=== PATIENT | male | born 1970 | race Caucasian/White ===

== ENCOUNTER 2018-02-08 11:50 | Emergency (ER) | payer BC, OTHER ==
--- NOTE | 2018-02-08 12:16 | ER ---
Nurse's Notes [facility] Name: Eugene Joya Age: 47 yrs Sex: Male : 1970 Arrival Date: 02/08/2018 Time: 11:53 Bed Waiting Private MD: Rose Reinoso H Diagnosis: Presentation: 02/08 11:54 Presenting complaint: Patient states: i was going to give blood and they told me my tw2 blood pressure was 150/100 something, and i feel a little tightness in my chest. Transition of care: patient was not received from another setting of care. Onset of symptoms was February 08, 2018. Risk Assessment: Do you want to hurt yourself or someone else? Patient reports no desire to harm self or others. Initial Sepsis Screen: Does the patient meet any 2 criteria? No. Patient's initial sepsis screen is negative. Does the patient have a suspected source of infection? No. Patient's initial sepsis screen is negative. Care prior to arrival: None. 11:54 Method Of Arrival: Ambulatory tw2 11:54 Acuity: RICCO 3 tw2 Historical: - Allergies: 11:57 No Known Allergies; tw2 - Home Meds: 11:57 Protonix 40 mg Oral grps 1 packet once daily [Active]; gabapentin 300 mg oral cap 1 cap tw2 3 times per day [Active]; meloxicam 15 mg oral tab 1 tab once daily [Active]; fenofibrate 120 mg oral tab 1 tab once daily [Active]; tramadol 50 mg Oral tab 1 tab every 4-6 hours [Active]; - PMHx: 11:57 GERD; tw2 - PSHx: 11:57 None; tw2 - Immunization history:: Adult Immunizations up to date. - Social history:: Smoking status: Patient/guardian denies using tobacco. Vital Signs: 11:55 BP 139 / 98; Pulse 84; Resp 17; Temp 98.1(O); Pulse Ox 98% on R/A; Weight 108.86 kg tw2 (R); Height 6 ft. (182.88 cm); Pain 1/10; 11:55 Body Mass Index 32.55 (108.86 kg, 182.88 cm) tw2 ED Course: 11:53 Patient arrived in ED. mr 11:53 Rose Reinoso DO is Private Physician. mr 11:54 Arm band placed on. tw2 11:55 Triage completed. tw2 Administered Medications: No medications were administered Outcome: 12:14 AMA Other pt triaged, ekg performed, pt informed of wait, pt states "i will just tw2 schedule something with my primary doctor i feel fine", ama form signed. 12:15 Patient left the ED. tw2 Signatures: Rosa Call mr Chaya Keene, RN RN tw2 Corrections: (The following items were deleted from the chart) 12:01 11:55 BP 139 / 98; Pulse 84bpm; Resp 17bpm; Pulse Ox 98% RA; Temp 98.1F Oral; 108.86 kg tw2 Reported; Height 6 ft.; BMI: 32.5; Pain 0/10; tw2
--- NOTE | 2018-02-08 18:35 | EKG ---
Test Date: 2018-02-08 Test Time: 12:03:29 Recruiting Team Lead: CARMEN MEASUREMENT RESULTS: Intervals: Rate: 81 IA: 136 QRSD: 90 QT: 358 QTc: 415 Ramer: P: 66 IA: 136 QRS: 76 T: 54 INTERPRETIVE STATEMENTS: Normal sinus rhythm Normal ECG No previous ECG available for comparison Electronically Signed On 02-08-18 18:33:34 CDT by Mango Taylor
== END 2018-02-08 12:15 | disposition left against medical advice (07) ==
LOC: ER 11:50
DX: Z53.21 Procedure and treatment not carried out due to patient leaving prior to being seen by health care provider (principal)
CPT/HCPCS: 93005; 99281

== ENCOUNTER 2018-07-22 20:18 | Emergency (ER) | payer OTHER ==
[2018-07-22] MEDS ORDERED: HYDROCODONE/APAP 10/325 TAB ONE (21:52)
--- NOTE | 2018-07-22 21:55 | RAD REPORT ---
EXAM DESCRIPTION: CT - Abdomen Pelvis Wo Contrast - 07/22/2018 9:40 pm CLINICAL HISTORY: Abdominal pain status post fall COMPARISON: None TECHNIQUE: Computed axial tomography of the abdomen and pelvis was obtained. IV and oral contrast we re not requested. All CT scans are performed using dose optimization technique as appropriate and may include automated exposure control or mA/KV adjustment according to patient size. FINDINGS: The evaluation of solid organs, vessels and bowel is limited secondary to the lack of con trast administration. The liver, spleen, pancreas, adrenals and kidneys appear grossly normal. The appendix is normal. There is no evidence of diverticulitis. IMPRESSION: No acute abnormality is displayed.
--- NOTE | 2018-07-22 22:15 | ER ---
Nurse's Notes [facility] Name: Eugene Joya Age: 47 yrs Sex: Male : 1970 Arrival Date: 07/22/2018 Time: 20:21 Bed 27 Private MD: Rose Reinoso H Diagnosis: Contusion Mid Back Presentation: 07/22 20:39 Presenting complaint: Patient states: he was working on his truck had one foot on the bb bumper and fell backwards landing on his back on a gas meter pt denies LOC and did not hit his head he is c/o right mid-back pain 04/29. Transition of care: patient was not received from another setting of care. Onset of symptoms was July 22, 2018. Risk Assessment: Do you want to hurt yourself or someone else? Patient reports no desire to harm self or others. Initial Sepsis Screen: Does the patient meet any 2 criteria? No. Patient's initial sepsis screen is negative. Does the patient have a suspected source of infection? No. Patient's initial sepsis screen is negative. Care prior to arrival: None. 20:39 Method Of Arrival: Ambulatory bb 20:39 Acuity: RICCO 4 bb Historical: - Allergies: 20:42 No Known Allergies; bb - Home Meds: 20:42 fenofibrate 120 mg Oral tab 1 tab once daily [Active]; gabapentin 300 mg Oral cap 1 cap bb 3 times per day [Active]; meloxicam 15 mg Oral tab 1 tab once daily [Active]; Protonix 40 mg Oral grps 1 packet once daily [Active]; tramadol 50 mg Oral tab 1 tab every 4-6 hours [Active]; - PMHx: 20:42 GERD; herniated disc in neck; bb - PSHx: 20:42 None; bb - Immunization history:: Adult Immunizations up to date, Last tetanus immunization: up to date. - Social history:: Smoking status: Patient/guardian denies using tobacco, Patient uses alcohol, occasionally. Patient/guardian denies using street drugs. - Ebola Screening: : No symptoms or risks identified at this time. Screenin:43 Abuse screen: Denies threats or abuse. Denies injuries from another. Nutritional mg2 screening: No deficits noted. Tuberculosis screening: No symptoms or risk factors identified. Fall Risk Fall in past 12 months (25 points). Gait- Weak (10 pts.). Assessment: 21:12 General: Appears in no apparent distress. uncomfortable, Behavior is calm, cooperative. mg2 Pain: Complains of pain in lower back Pain does not radiate. Pain currently is 8 out of 10 on a pain scale. Quality of pain is described as aching. Neuro: Level of Consciousness is awake, alert, obeys commands, Oriented to person, place, time, situation. Cardiovascular: Capillary refill < 3 seconds Patient's skin is warm and dry. Respiratory: Airway is patent Respiratory effort is even, unlabored, Respiratory pattern is regular, symmetrical. GI: No signs and/or symptoms were reported involving the gastrointestinal system. : No signs and/or symptoms were reported regarding the genitourinary system. EENT: No signs and/or symptoms were reported regarding the EENT system. Derm: Skin is intact, is healthy with good turgor, Skin is pink, warm \T\ dry. normal. Musculoskeletal: Circulation, motion, and sensation intact. Capillary refill < 3 seconds. Injury Description: pain. Vital Signs: 20:42 BP 136 / 100; Pulse 93; Resp 16 S; Temp 98.5(O); Pulse Ox 94% on R/A; Weight 113.4 kg bb (R); Height 6 ft. 1 in. (185.42 cm) (R); Pain 8/10; 21:58 BP 131 / 67; Pulse 86; Resp 16; Pulse Ox 96% on R/A; mt 22:29 BP 128 / 78; Pulse 80; Resp 18; Pulse Ox 100% on R/A; Pain 0/10; mg2 20:42 Body Mass Index 32.98 (113.40 kg, 185.42 cm) ED Course: 20:21 Patient arrived in ED. es 20:21 Rose Reinoso DO is Private Physician. es 20:38 Mayur Nova, KARLA is Primary Nurse. mg2 20:41 Triage completed. bb 20:42 Patient placed in an exam room, on a stretcher, on pulse oximetry. Family accompanied bb patient. 20:43 Sy Segura PA is PHCP. jr8 20:43 Arnaldo Tomas MD is Attending Physician. jr8 20:43 Patient has correct armband on for positive identification. Bed in low position. Call mg2 light in reach. Side rails up X 1. Pulse ox on. NIBP on. Door closed. Warm blanket given. 20:43 No provider procedures requiring assistance completed. mg2 21:[address] mw3 22:13 Rose eRinoso DO is Referral Physician. jr8 22:29 Patient did not have IV access during this emergency room visit. mg2 22:43 CT Abd/Pelvis - Without Cont In Process Unspecified. EDMS Administered Medications: 21:46 Drug: [place] 10 mg-325 mg 1 tabs Route: PO; mg2 22:25 Follow up: Response: No adverse reaction; Marked relief of symptoms mg2 Outcome: 22:14 Discharge ordered by MD. jr8 22:29 Discharged to home ambulatory, with family. mg2 22:29 Condition: stable 22:29 Discharge instructions given to patient, family, Instructed on discharge instructions, follow up and referral plans. medication usage, Demonstrated understanding of instructions, follow-up care, medications, Prescriptions given X 1. 22:30 Patient left the ED. mg2 Signatures: Dispatcher [employer] EDMS Katie Florian Brenda, RN RN bb Sy Segura PA PA jr8 Ashley Serrano mt, Michele, RN RN [facility] Cherie Anderson mw3
--- NOTE | 2018-07-22 22:15 | EDPHYS ---
Physician Documentation [facility] Name: Eugene Joya Age: 47 yrs Sex: Male : 1970 Arrival Date: 07/22/2018 Time: 20:21 Bed 27 Private MD: Rose Reinoso H ED Physician Arnaldo Tomas HPI: 07/22 21:20 This 47 yrs old Male presents to ER via Ambulatory with complaints of Back jr8 Injury. 21:20 The patient presents with pain that is acute. The symptoms are located in the right mid jr8 back. Onset: The symptoms/episode began/occurred acutely, today. The pain does not radiate. Associated signs and symptoms: The patient has no apparent associated signs or symptoms. The problem was sustained during a fall. Severity of symptoms: At their worst the symptoms were moderate, in the emergency department the symptoms are unchanged. The patient has not experienced similar symptoms in the past. The patient has not recently seen a physician. Fell while working on truck. Fall was about 4 feet. Landed on Gas meter. Pain to mid right back since incident. Denies hitting head or neck. Denies LOC . Historical: - Allergies: 20:42 No Known Allergies; bb - Home Meds: 20:42 fenofibrate 120 mg Oral tab 1 tab once daily [Active]; gabapentin 300 mg Oral cap 1 cap bb 3 times per day [Active]; meloxicam 15 mg Oral tab 1 tab once daily [Active]; Protonix 40 mg Oral grps 1 packet once daily [Active]; tramadol 50 mg Oral tab 1 tab every 4-6 hours [Active]; - PMHx: 20:42 GERD; herniated disc in neck; bb - PSHx: 20:42 None; bb - Immunization history:: Adult Immunizations up to date, Last tetanus immunization: up to date. - Social history:: Smoking status: Patient/guardian denies using tobacco, Patient uses alcohol, occasionally. Patient/guardian denies using street drugs. - Ebola Screening: : No symptoms or risks identified at this time. ROS: 21:20 Eyes: Negative for injury, pain, redness, and discharge, ENT: Negative for injury, jr8 pain, and discharge, Neck: Negative for injury, pain, and swelling, Cardiovascular: Negative for chest pain, palpitations, and edema, Respiratory: Negative for shortness of breath, cough, wheezing, and pleuritic chest pain, Abdomen/GI: Negative for abdominal pain, nausea, vomiting, diarrhea, and constipation, MS/Extremity: Negative for injury and deformity, Skin: Negative for injury, rash, and discoloration, Neuro: Negative for headache, weakness, numbness, tingling, and seizure. 21:20 Back: Positive for pain at rest, pain with movement, Negative for radiated pain. Exam: 21:20 Head/Face: Normocephalic, atraumatic. Eyes: Pupils equal round and reactive to light, jr8 extra-ocular motions intact. Lids and lashes normal. Conjunctiva and sclera are non-icteric and not injected. Cornea within normal limits. Periorbital areas with no swelling, redness, or edema. ENT: Nares patent. No nasal discharge, no septal abnormalities noted. Tympanic membranes are normal and external auditory canals are clear. Oropharynx with no redness, swelling, or masses, exudates, or evidence of obstruction, uvula midline. Mucous membranes moist. Neck: Trachea midline, no thyromegaly or masses palpated, and no cervical lymphadenopathy. Supple, full range of motion without nuchal rigidity, or vertebral point tenderness. No Meningismus. Chest/axilla: Normal chest wall appearance and motion. Nontender with no deformity. No lesions are appreciated. Cardiovascular: Regular rate and rhythm with a normal S1 and S2. No gallops, murmurs, or rubs. Normal PMI, no JVD. No pulse deficits. Respiratory: Lungs have equal breath sounds bilaterally, clear to auscultation and percussion. No rales, rhonchi or wheezes noted. No increased work of breathing, no retractions or nasal flaring. Abdomen/GI: Soft, non-tender, with normal bowel sounds. No distension or tympany. No guarding or rebound. No evidence of tenderness throughout. Skin: Warm, dry with normal turgor. Normal color with no rashes, no lesions, and no evidence of cellulitis. MS/ Extremity: Pulses equal, no cyanosis. Neurovascular intact. Full, normal range of motion. Neuro: Awake and alert, GCS 15, oriented to person, place, time, and situation. Cranial nerves II-XII grossly intact. Motor strength 5/5 in all extremities. Sensory grossly intact. Cerebellar exam normal. Normal gait. 21:20 Back: pain, that is moderate, of the right mid back, ROM is painful, normal spinal alignment noted, CVA tenderness, is absent, vertebral tenderness, is not appreciated. Vital Signs: 20:42 BP 136 / 100; Pulse 93; Resp 16 S; Temp 98.5(O); Pulse Ox 94% on R/A; Weight 113.4 kg bb (R); Height 6 ft. 1 in. (185.42 cm) (R); Pain 8/10; 21:58 BP 131 / 67; Pulse 86; Resp 16; Pulse Ox 96% on R/A; mt 22:29 BP 128 / 78; Pulse 80; Resp 18; Pulse Ox 100% on R/A; Pain 0/10; mg2 20:42 Body Mass Index 32.98 (113.40 kg, 185.42 cm) bb MDM: 20:57 Patient medically screened. jr8 22:12 Differential diagnosis: ruptured disc, spinal injury, sprain, vertebral fracture, jr8 Hematoma, Kidney injury. Data reviewed: vital signs, nurses notes, radiologic studies, CT scan, and as a result, I will discharge patient. Data interpreted: Pulse oximetry: on room air is 96 %. Interpretation: normal. Counseling: I had a detailed discussion with the patient and/or guardian regarding: the historical points, exam findings, and any diagnostic results supporting the discharge/admit diagnosis, radiology results, the need for outpatient follow up, a family practitioner, to return to the emergency department if symptoms worsen or persist or if there are any questions or concerns that arise at home. 07/22 21:11 Order name: CT Abd/Pelvis - Without Cont jr8 Administered Medications: 21:46 Drug: [place] 10 mg-325 mg 1 tabs Route: PO; mg2 22:25 Follow up: Response: No adverse reaction; Marked relief of symptoms mg2 Disposition: 23:09 Co-signature as Attending Physician, Arnaldo Tomas MD. pkl Disposition: 07/22/18 22:14 Discharged to Home. Impression: Contusion Mid Back. - Condition is Stable. - Discharge Instructions: Contusion. - Prescriptions for Robaxin 500 mg Oral Tablet - take 2 tablet by ORAL route every 6 hours As needed; 40 tablet. - Medication Reconciliation Form, Thank You Letter, Antibiotic Education, Prescription Opioid Use form. - Follow up: Rose Reinoso DO; When: 2 - 3 days; Reason: Recheck today's complaints, Continuance of care, Re-evaluation by your physician. - Problem is new. - Symptoms have improved. Signatures: Dispatcher [employer] EDArnaldo Goodrich MD MD pkl Ballard, Brenda, RN RN Sy Freeman PA PA jr8 Mayur Nova RN RN mg2 Corrections: (The following items were deleted from the chart) 22:30 22:14 07/22/2018 22:14 Discharged to Home. Impression: Contusion Mid Back. Condition is mg2 Stable. Forms are Medication Reconciliation Form, Thank You Letter, Antibiotic Education, Prescription Opioid Use. Follow up: EstrellitaAriella Reinoso; When: 2 - 3 days; Reason: Recheck today's complaints, Continuance of care, Re-evaluation by your physician. Problem is new. Symptoms have improved. jr8
== END 2018-07-22 22:30 | disposition home or self-care (01) ==
LOC: ER 20:18
DX: S30.0XXA Contusion of lower back and pelvis, initial encounter (principal); W19.XXXA Unspecified fall, initial encounter; Y93.89 Activity, other specified; Y92.9 Unspecified place or not applicable
CPT/HCPCS: 74176; 99284

== ENCOUNTER 2024-10-31 07:59 | Inpatient (IN) | payer OTHER ==
[2024-10-31] MEDS ORDERED: METOPROLOL TARTRATE 5 MG/5 ML INJ IV ONE (08:17)
[2024-10-31] MEDS ORDERED: ASPIRIN 81 MG CHEWABLE TABLET ONE (08:17)
[2024-10-31 08:24] LABS: Absolute Basophils 0.1 K/uL (0-0.5); Absolute Eosinophils 0.2 K/uL (0-0.5); Absolute Lymphocytes (CBC) 1.8 K/uL (0.7-4.9); Absolute Monocytes 1.2 K/uL (0.1-1.3); Basophils % 0.8 % (0-1.3); Eosinophils % 2.2 % (0-4.4); Hematocrit 52.3 % (39.6-49.0); Hemoglobin 18.4 g/dL (13.6-17.9); MCH 29.7 pg (27.0-35.0); MCHC 35.2 g/dL (32.0-36.0); MCV 84.4 fL (80-100); MPV 8.4 fL (7.6-11.3); Monocytes % 11.9 % (3.3-12.3); Neutrophils % 68.1 % (41.7-73.7); Nucleated Red Blood Cells % 0.2 % (0-0); Platelets 185 thou/uL (152-406); Red Cell Distribution Width 14.4 % (12.1-15.2)
[2024-10-31 08:32] LABS: PT Prothrombin Time 11.5 SECONDS (9.4-12.5); Protime INR 1.1
[2024-10-31 08:40] LABS: Albumin 3.5 g/dL (3.4-5.0); Albumin/Globulin Ratio 0.9 (1.1-1.8); Anion Gap 9.3 mEq/L (5.0-15.0); Bilirubin Direct 0.2 mg/dL (0-0.2); Bilirubin Indirect, Calculated 0.5 mg/dL (0.2-0.8); Bilirubin Total 0.7 mg/dL (0.2-1.0); Globulin 3.8 g/dL (2.3-3.5); Magnesium 1.8 mg/dL (1.6-2.4); Potassium 4.3 mEq/L (3.5-5.1); Protein, Total 7.3 g/dL (6.4-8.2)
[2024-10-31 08:41] LABS: Troponin High Sensitivity 502.7 pg/mL (<58.9)
[2024-10-31] MEDS ORDERED: AMIODARONE HCL 150 MG/3 ML INJ IV ONE (08:51)
--- NOTE | 2024-10-31 09:09 | ER ---
Nurse's Notes [facility] Name: Eugene Joya Age: 54 yrs Sex: Male : 1970 Arrival Date: 10/31/2024 Time: 07:59 Bed 7 Private MD: Diagnosis: Unspecified atrial fibrillation;Chest pain, unspecified;Elevated Troponin Presentation: 10/31 08:05 Chief complaint: Patient states: Pt c/o CP, tightness, SOB, nausea X 1 week. ld1 Coronavirus screen: At this time, the client does not indicate any symptoms associated with coronavirus-19. Ebola Screen: No symptoms or risks identified at this time. Initial Sepsis Screen: Does the patient meet any 2 criteria? No. Patient's initial sepsis screen is negative. Does the patient have a suspected source of infection? No. Patient's initial sepsis screen is negative. Risk Assessment: Do you want to hurt yourself or someone else? Patient reports no desire to harm self or others. Onset of symptoms was October 31, 2024. 08:05 Method Of Arrival: Ambulatory ld1 08:05 Acuity: RICCO 2 ld1 Triage Assessment: 08:18 General: Appears in no apparent distress. comfortable, Behavior is calm, cooperative, ld1 appropriate for age. Pain: Complains of pain in chest Pain does not radiate. Pain currently is 2 out of 10 on a pain scale. Quality of pain is described as pulsating, Pain began 1 week ago Is intermittent. EENT: No signs and/or symptoms were reported regarding the EENT system. Neuro: Level of Consciousness is awake, alert, obeys commands, Oriented to person, place, time, situation, Appropriate for age. Cardiovascular: Capillary refill < 3 seconds Patient's skin is warm and dry. Rhythm is atrial fibrillation. Respiratory: Airway is patent Respiratory effort is even, unlabored. GI: Abdomen is round non-distended. GI: Reports nausea. : No signs and/or symptoms were reported regarding the genitourinary system. Derm: Skin is diaphoretic. Musculoskeletal: No signs and/or symptoms reported regarding the musculoskeletal system. Historical: - Allergies: 08:04 No Known Allergies; ld1 - PMHx: 08:04 GERD; herniated disc in neck; ld1 08:18 Atrial fibrillation; ld1 - Immunization history:: Adult Immunizations up to date. - Infectious Disease History:: Denies. - Social history:: Smoking status: Patient denies any tobacco usage or history of. Screenin:12 [facility] ED Fall Risk Assessment (Adult) History of falling in the last 3 months, ld1 including since admission No falls in past 3 months (0 pts) Confusion or Disorientation No (0 pts) Intoxicated or Sedated No (0 pts) Impaired Gait No (0 pts) Mobility Assist Device Used No (0 pt) Altered Elimination No (0 pt) Score/Fall Risk Level 0 - 2 = Low Risk Oriented to surroundings, Hourly rounding (assess needs \T\ fall precautionary measures) done. Abuse screen: Denies threats or abuse. Denies injuries from another. Nutritional screening: No deficits noted. Tuberculosis screening: No symptoms or risk factors identified. Assessment: 08:12 Reassessment: See triage assessment. ERP at bedside. EKG given to Dr. Rios. ld1 08:12 Pain: Complains of pain in chest. ko1 08:12 Pain: Pain does not radiate. Pain at worst was 8 out of 10 on a pain scale. Quality of ko1 pain is described as aching. Pain: Pain began 2-3 days ago. Is continuous. 08:36 Reassessment: Patient appears in no apparent distress at this time. Patient and/or ld1 family updated on plan of care and expected duration. Pain level reassessed. Patient denies pain at this time. Vital Signs: 08:05 BP 153 / 103; Pulse 156; Resp 18; Temp 97.6(TE); Pulse Ox 98% on R/A; Weight 113.4 kg; ld1 Height 6 ft. 0 in. ; Pain 0/10; 08:12 Pulse 157; ld1 08:36 BP 118 / 95; Pulse 127; Resp 18; Pulse Ox 95% on R/A; ld1 09:55 BP 121 / 94; Pulse 118; Resp 17; Pulse Ox 98% on R/A; ko1 08:05 Body Mass Index 33.91 (113.40 kg, 182.88 cm) ld1 08:05 Pain Scale: Adult ld1 Vitals: 08:10 Cardiac Rhythm Assessment Irregular Atrial fibrillation W/rapid ventricular response ko1 W/PVC's. 09:58 Cardiac Rhythm Assessment Irregular Atrial fibrillation W/rapid ventricular response. ko1 ED Course: 08:03 Patient arrived in ED. al6 08:04 Neil Rios DO is Attending Physician. ms3 08:04 Kassi Rios, RN is Primary Nurse. ld1 08:12 No provider procedures requiring assistance completed. Inserted saline lock: 20 gauge ld1 in right antecubital area, using aseptic technique. Blood collected. Flushed with 10 mL NS. Patient maintains SpO2 saturation greater than 95% on room air. 08:12 Patient has correct armband on for positive identification. Placed in gown. Bed in low ld1 position. Call light in reach. Side rails up X2. Provided Education on: Atrial Fibrillation. hand cultivator on. Pulse ox on. NIBP on. Door closed. Noise minimized. Warm blanket given. 08:15 Initial lab(s) drawn, by me, sent to lab. EKG done, by ED staff, reviewed by Neil Rios DO. 08:18 Triage completed. ld1 08:18 Basic Metabolic Panel Sent. ko1 08:18 CBC with Diff Sent. ko1 08:18 LFT's Sent. ko1 08:18 Magnesium Sent. ko1 08:18 PT-INR Sent. ko1 08:18 Troponin HS Sent. ko1 08:18 Arm band placed on right wrist. ld1 08:35 Assisted to bathroom. ko1 09:08 XRAY Chest (1 view) In Process Unspecified. EDMS 09:08 Jennifer Jaimes is Hospitalizing Provider. ms3 09:22 Ptt, Activated Sent. ko1 10:33 Kelsey Tejada, RN is Primary Nurse. ko1 13:28 Patient admitted, IV remains in place. ko1 Administered Medications: 08:21 Drug: Metoprolol IVP 5 mg IVP every 5 minutes; Hold for SBP < 100 or HR < 60. x3 Route: ko1 IVP; Site: right antecubital; 08:26 Drug: Aspirin PO Chewable Tablet 324 mg PO once; 81 mg tablets x 4 Route: PO; ko1 09:00 Follow up: Response: No adverse reaction ko1 08:26 Drug: Metoprolol IVP 5 mg IVP every 5 minutes; Hold for SBP < 100 or HR < 60. x3 Route: ko1 IVP; Site: right antecubital; 08:34 Drug: Metoprolol IVP 5 mg IVP every 5 minutes; Hold for SBP < 100 or HR < 60. x3 Route: ko1 IVP; Site: right antecubital; 08:49 Follow up: Response: No adverse reaction ko1 08:56 CANCELLED (Physician Discretion): [id number] mg 100 ml IVPB once over 10 mins; (mix ms3 in D5W) 08:57 CANCELLED (Physician Discretion): [id number] mg, d5w iv 500 ml IVPB at 1 mg/min ms3 continuous; for 6 hrs, then change to 0.5 mg/min 09:31 Drug: Heparin (TN-Bolus No thrombolytic) - HEParin IVP 60 units/kg IVP once; Max 5000 ko1 units {Co-Signature: rajan (Kassi Rios RN).} Route: IVP; Site: right antecubital; 09:46 Follow up: Response: No adverse reaction ko1 09:31 Drug: Metoprolol PO 25 mg PO once Route: PO; ko1 10:33 Follow up: Response: No adverse reaction ko1 09:33 Drug: Sotalol PO 80 mg PO once Route: PO; ko1 10:33 Follow up: Response: No adverse reaction ko1 09:33 Drug: Heparin (TN Drip) 12 units/kg/hr - ([place] [address] units, D5W IV 500 ml) IV at ko1 calculated rate Per protocol; Max initial rate 1000 units/hr {Co-Signature: rajan (Kassi Rios RN).} Route: IV; Rate: calculated rate; Site: right antecubital; 10:34 Follow up: IV Status: Infusion continued upon admission ko1 Medication: 08:12 VIS not applicable for this client. ld1 Outcome: 09:09 Decision to Hospitalize by Provider. ms3 13:28 Admitted to Tele accompanied by tech, via wheelchair, room 204, with chart, ko1 13:28 Condition: stable 13:28 Instructed on the need for admit, 13:29 Patient left the ED. ko1 Signatures: Dispatcher [employer] EDMS Neil Rios DO DO ms3 Kassi Rios RN RN ld1 Kelsey Tejada RN RN ko1 Raissa San6 Kassi Rios RN1 Corrections: (The following items were deleted from the chart) 09:54 08:12 Pain: Denies pain. ld1 ko1
--- NOTE | 2024-10-31 09:10 | EDPHYS ---
Physician Documentation [facility] Name: Eugene Joya Age: 54 yrs Sex: Male : 1970 Arrival Date: 10/31/2024 Time: 07:59 Bed 7 Private MD: ED Physician Neil Rios HPI: 10/31 08:16 This 54 yrs old Male presents to ER via Unassigned with complaints of Chest Pain, ms3 Breathing Difficulty. 08:16 54-year-old male with past medical history of GERD, herniated disc in neck [place] [facility] [place] for shortness of breath and chest pain that is been ongoing for 1 week. Patient states the discomfort is not radiating. Patient states his discomfort is a 6/10 and described as being tight. Patient endorses shortness of breath, nausea, diaphoresis. Patient denies vomiting. Historical: - Allergies: 08:04 No Known Allergies; ld1 - PMHx: 08:04 GERD; herniated disc in neck; ld1 08:18 Atrial fibrillation; ld1 - Immunization history:: Adult Immunizations up to date. - Infectious Disease History:: Denies. - Social history:: Smoking status: Patient denies any tobacco usage or history of. ROS: 08:16 Constitutional: Negative for fever, and chills. Abdomen/GI: Negative for abdominal ms3 pain, nausea, vomiting, diarrhea, and constipation, MS/Extremity: Negative for injury and deformity, Skin: Negative for injury, rash, and discoloration, 08:16 Cardiovascular: Positive for chest pain, 08:16 Respiratory: Positive for shortness of breath, Exam: 08:16 Constitutional: This is a well developed, well nourished patient who is awake, alert, ms3 and in no acute distress. 08:16 Respiratory: Lungs have equal breath sounds bilaterally, clear to auscultation and percussion. No rales, rhonchi or wheezes noted. No increased work of breathing, no retractions or nasal flaring. Abdomen/GI: Soft, non-tender, with normal bowel sounds. No distension or tympany. No guarding or rebound. No evidence of tenderness throughout. Back: No spinal tenderness. No costovertebral tenderness. Full range of motion. Skin: Warm, dry with normal turgor. Normal color with no rashes, no lesions, and no evidence of cellulitis. MS/ Extremity: Pulses equal, no cyanosis. Neurovascular intact. Full, normal range of motion. 08:16 Cardiovascular: Rate: tachycardic, Rhythm: irregularly irregular, Pulses: no pulse deficits are appreciated, 08:18 ECG was reviewed by the Attending Physician. ms3 Vital Signs: 08:05 BP 153 / 103; Pulse 156; Resp 18; Temp 97.6(TE); Pulse Ox 98% on R/A; Weight 113.4 kg; ld1 Height 6 ft. 0 in. ; Pain 0/10; 08:12 Pulse 157; ld1 08:36 BP 118 / 95; Pulse 127; Resp 18; Pulse Ox 95% on R/A; ld1 09:55 BP 121 / 94; Pulse 118; Resp 17; Pulse Ox 98% on R/A; ko1 08:05 Body Mass Index 33.91 (113.40 kg, 182.88 cm) ld1 08:05 Pain Scale: Adult ld1 MDM: 08:10 Medical Screening Exam initiated ms3 08:16 Differential diagnosis: abnormal EKG, acute myocardial infarction, Arrhythmia. ms3 09:00 Management of patient was discussed with the following: Page Makeup System Operator: Discussed case with ms3 Dr Patino. Would like Sotolol 80 mg BID, Metoprolol 25 mg BID, trend troponin, obtain echo, start Heparin ggt.. 09:04 The patient was given aspirin in the Emergency Department. ms3 09:32 HEART Score: History: Moderately Suspicious (1), ECG: Normal (0), Age: > 45 and < 65 ms3 years (1), Risk Factors: No Risk Factors Known (0), Troponin: > or = 3 x Normal Limit (2), Total Score = 4. Data reviewed: vital signs, nurses notes, lab test result(s), EKG, radiologic studies, and as a result, I will admit patient. Consideration of Admission/Observation Patient was admitted/placed on observation. Management of patient was discussed with the following: Hospitalist: Dr Crenshaw. I considered the following discharge prescriptions or medication management in the emergency department Medications were administered in the Emergency Department. See MAR. Independent interpretation of the following test(s) in the Emergency Department EKG: See my EKG interpretation above. Counseling: I had a detailed discussion with the patient and/or guardian regarding the historical points, exam findings, and any diagnostic results supporting the discharge/admit diagnosis, lab results, radiology results, the need for further work-up and treatment in the hospital. ED course: Discussed with patient necessity for admission. All questions were answered. Discussed case with hospitalist group and they accept patient for admission.. 10/31 08:04 Order name: Basic Metabolic Panel; Complete Time: 08:44 ms3 10/31 08:04 Order name: CBC with Diff; Complete Time: 08:44 ms3 10/31 08:04 Order name: LFT's; Complete Time: 08:44 ms3 10/31 08:04 Order name: Magnesium; Complete Time: 08:44 ms3 10/31 08:04 Order name: PT-INR; Complete Time: 08:44 ms3 10/31 08:04 Order name: Troponin HS; Complete Time: 08:44 ms3 10/31 09:22 Order name: Ptt, Activated; Complete Time: 10:12 ko1 10/31 10:28 Order name: Add On-Lab snw 10/31 10:36 Order name: T4 Free EDMS 10/31 10:36 Order name: Thyroid Stimulating Hormone EDMS 10/31 12:30 Order name: C.difficile GDH Ag EDMS 10/31 12:30 Order name: Magnesium EDMS 10/31 12:30 Order name: Basic Metabolic Panel EDMS 10/31 12:30 Order name: Basic Metabolic Panel EDMS 10/31 12:30 Order name: Basic Metabolic Panel EDMS 10/31 12:30 Order name: Basic Metabolic Panel EDMS 10/31 12:30 Order name: CBC with Automated Diff EDMS 10/31 12:30 Order name: CBC with Automated Diff EDMS 10/31 12:30 Order name: CBC with Automated Diff EDMS 10/31 12:30 Order name: CBC with Automated Diff EDMS 10/31 12:30 Order name: Troponin High Sensitivity EDMS 10/31 12:30 Order name: Troponin High Sensitivity EDMS 10/31 12:30 Order name: Troponin High Sensitivity EDMS 10/31 12:30 Order name: Troponin High Sensitivity EDMS 10/31 12:31 Order name: PTT, Activated Partial Thromb EDMS 10/31 08:04 Order name: XRAY Chest (1 view); Complete Time: 10:12 ms3 10/31 09:10 Order name: Echo with Doppler [facility] 10/31 12:30 Order name: CONS Physician Consult [facility] 10/31 12:30 Order name: EKG Electrocardiogram [facility] 10/31 12:30 Order name: EKG Electrocardiogram [facility] 10/31 12:30 Order name: EKG Electrocardiogram [facility] 10/31 12:30 Order name: EKG Electrocardiogram [facility] 10/31 08:04 Order name: Cardiac monitoring; Complete Time: 08:18 ms3 10/31 08:04 Order name: EKG - Nurse/Tech; Complete Time: 08:18 ms3 10/31 08:04 Order name: IV Saline Lock; Complete Time: 08:18 ms3 10/31 08:04 Order name: Labs collected and sent; Complete Time: 08:18 ms3 10/31 08:04 Order name: O2 Per Protocol; Complete Time: 08:18 ms3 10/31 08:04 Order name: O2 Sat Monitoring; Complete Time: 08:18 ms3 EC:18 Rate is 164 beats/min. Rhythm is irregularly irregular. QRS Mcdonough is Normal. QRS ms3 interval is normal. Clinical impression: Atrial Fibrillation and with rapid ventricular rate. Interpreted by me. Reviewed by me. Administered Medications: 08:21 Drug: Metoprolol IVP 5 mg IVP every 5 minutes; Hold for SBP < 100 or HR < 60. x3 Route: ko1 IVP; Site: right antecubital; 08:26 Drug: Aspirin PO Chewable Tablet 324 mg PO once; 81 mg tablets x 4 Route: PO; ko1 09:00 Follow up: Response: No adverse reaction ko1 08:26 Drug: Metoprolol IVP 5 mg IVP every 5 minutes; Hold for SBP < 100 or HR < 60. x3 Route: ko1 IVP; Site: right antecubital; 08:34 Drug: Metoprolol IVP 5 mg IVP every 5 minutes; Hold for SBP < 100 or HR < 60. x3 Route: ko1 IVP; Site: right antecubital; 08:49 Follow up: Response: No adverse reaction ko1 08:56 CANCELLED (Physician Discretion): [id number] mg 100 ml IVPB once over 10 mins; (mix ms3 in D5W) 08:57 CANCELLED (Physician Discretion): [id number] mg, d5w iv 500 ml IVPB at 1 mg/min ms3 continuous; for 6 hrs, then change to 0.5 mg/min 09:31 Drug: Heparin (IN-Bolus No thrombolytic) - HEParin IVP 60 units/kg IVP once; Max 5000 ko1 units {Co-Signature: rajan (Kassi Rios RN).} Route: IVP; Site: right antecubital; 09:46 Follow up: Response: No adverse reaction ko1 09:31 Drug: Metoprolol PO 25 mg PO once Route: PO; ko1 10:33 Follow up: Response: No adverse reaction ko1 09:33 Drug: Sotalol PO 80 mg PO once Route: PO; ko1 10:33 Follow up: Response: No adverse reaction ko1 09:33 Drug: Heparin (IN Drip) 12 units/kg/hr - ([place] [address] units, D5W IV 500 ml) IV at ko1 calculated rate Per protocol; Max initial rate 1000 units/hr {Co-Signature: rajan (Kassi Rios RN).} Route: IV; Rate: calculated rate; Site: right antecubital; 10:34 Follow up: IV Status: Infusion continued upon admission ko1 Disposition: 09:04 Critical Care:. ms3 Disposition Summary: 10/31/24 09:09 Hospitalization Ordered Notes: Hospitalization Status: Inpatient Admission ms3 Provider: Jennifer Jaimes ms3 Location: Telemetry/[facility] (Inpatient) ms3 Condition: Stable ms3 Problem: new ms3 Symptoms: are unchanged ms3 Bed/Room Type: [place] ms3 Room Assignment: 204(10/31/24 12:36) Diagnosis - Unspecified atrial fibrillation ms3 - Chest pain, unspecified ms3 - Elevated Troponin ms3 Forms: - Medication Reconciliation Form ms3 - SBAR form ms3 - Leadership Thank You Letter ms3 Critical care time excluding procedures: 09:04 Critical care time: Bedside Care: 35 minutes, Consultation: 5 minutes, Family ms3 Intervention: 5 minutes. Total time: 45 minutes Signatures: Dispatcher [employer] Estrellita Porter RN RN iw Luis A Cardenas MD MD rn Sims, Marcus, DO DO ms3 Kassi Rios RN RN ld1 Kelsey Tejada RN RN ko1 Rios, Kassi RN ld1 Corrections: (The following items were deleted from the chart) 08:05 08:05 BASIC METABOLIC PANEL+C.LAB.BRZ ordered. EDMS EDMS 08:05 08:05 CBC+H.LAB.BRZ ordered. EDMS EDMS 08:05 08:05 HEPATIC FUNCTION+C.LAB.BRZ ordered. EDMS EDMS 08:05 08:05 MAGNESIUM+C.LAB.BRZ ordered. EDMS EDMS 08:05 08:05 PROTIME (+INR)+COAG.LAB.BRZ ordered. EDMS EDMS 08:05 08:05 Troponin High Sensitivity+C.LAB.BRZ ordered. EDMS EDMS 08:05 08:05 Chest Single View+RAD.RAD.BRZ ordered. EDMS EDMS 08:56 08:48 amiodarone IVPB 150 mg 100 ml IVPB once over 10 mins; (mix in D5W) ordered. ms3 ms3 08:56 08:56 amiodarone IVPB 150 mg 100 ml IVPB once over 10 mins; (mix in D5W) ordered. ms3 ms3 08:57 08:48 amiodarone IVPB 900 mg, D5W IV 500 ml IVPB at 1 mg/min continuous; for 6 hrs, ms3 then change to 0.5 mg/min ordered. ms3 08:57 08:56 amiodarone IVPB 900 mg, D5W IV 500 ml IVPB at 1 mg/min continuous; for 6 hrs, ms3 then change to 0.5 mg/min ordered. ms3 12:36 09:09 ms3 iw
[2024-10-31] MEDS ORDERED: METOPROLOL TAR 25 MG TAB ONE (09:11)
[2024-10-31] MEDS ORDERED: SOTALOL HCL 80 MG TAB ONE (09:11)
[2024-10-31] MEDS ORDERED: HEPARIN 5000 UNIT/ML 1 ML VIAL ONE (09:11)
--- NOTE | 2024-10-31 09:11 | RAD REPORT ---
Procedure: Chest Single View HISTORY: Chest pain COMPARISON: none FINDINGS: The lungs appear clear of acute infiltrate. No significant pleural effusion noted. The heart is normal size. IMPRESSION: No acute abnormality is displayed.
[2024-10-31] MEDS ORDERED: HEPARIN/D5W 25,000 UNIT/500 ML BAG IV ONE (09:12)
[2024-10-31 10:58] LABS: Thyroid Stimulating Hormone 2.31 uIU/mL (0.358-3.740)
[2024-10-31] MEDS ORDERED: ACETAMINOPHEN 500 MG TAB PO PRN (12:16)
--- NOTE | 2024-10-31 12:35 | P.HP ---
Certification for Inpatient Patient admitted to: Inpatient With expected LOS: >2 Midnights Patient will require the following post-hospital care: None Practitioner: I am a practitioner with admitting privileges, knowledge of patient current condition, hospital course, and medical plan of care. Services: Services provided to patient in accordance with Admission requirements found in Title 42 Section 412.3 of the Code of Federal Regulations Patient History Date of Service: 10/31/24 Reason for admission: a fib with RVR, NSTEMI History of Present Illness: Mr. Joya is a 54-year-old gentleman with past medical history of hypertension. He was diagnosed about 5 years ago and took medication for approximately 1 month. He did not like how it made him feel so discontinued use. He states he was in his normal state of health until about 2 and half months ago when he was given some Levaquin for an illness. He states he has had diarrhea ever since. Over the last week, he has been having palpitations, dyspnea on exertion, insomnia, and last p.m. had diaphoresis and chest tightness. This morning he states his blood pressure was 186/121 with increasing chest tightness so he presented to the emergency department for evaluation. On arrival at the ED he was noted to have A-fib with RVR. He was given aspirin, IV Lopressor x 3 rounds, and Dr. Patino was consulted. I heparin drip was initiated, sotalol 80 mg p.o. twice daily and metoprolol 25 mg p.o. twice daily were ordered. The patient will be admitted for further evaluation, an echocardiogram, and consultation with cardiology. TSH added to workup was negative for hyperthyroid state, C. difficile exam ordered and isolation precautions initiated. Allergies No Known Allergies Allergy (Unverified 02/08/18 12:19) - Past Medical/Surgical History Has patient received pneumonia vaccine in the past: No -: Hypertension -: Low T -: Sleep apnea Psychosocial/ Personal History: Lives at home with his . Uses testosterone, states he gives blood often, stopped smoking 8 years ago, occasional alcohol. Encouraged to take blood pressure medicine about 5 years ago but did not like the way it felt so stopped taking after about 3 weeks - Family History Father -: Hypertension - Social History Smoking Status: Former smoker Alcohol use: Yes CD- Drugs: No Caffeine use: Yes Place of Residence: Home Review of Systems 10-point ROS is otherwise unremarkable General: Malaise Eyes: Unremarkable ENT: Unremarkable Respiratory: Shortness of Breath Cardiovascular: Palpitations, Orthopnea, Paroxysmal Noc. Dyspnea, Other (chest tightness) Gastrointestinal: Diarrhea Genitourinary: Unremarkable Musculoskeletal: Unremarkable Integumentary: Unremarkable Neurological: Unremarkable Lymphatics: Unremarkable Physical Examination - Vital Signs Blood Pressure: 134/104 Pulse: 123 (Variable) Respirations: 14 Pulse Ox (%): 95 - Physical Exam General: Alert, In no apparent distress, Oriented x3 HEENT: Atraumatic, Normocephalic, PERRLA Neck: Supple, JVD not distended Respiratory: Clear to auscultation bilaterally, Normal air movement Cardiovascular: Normal pulses, Other (RVR), Irregular heart rate/rhythm Capillary refill: <2 Seconds Gastrointestinal: Soft and benign, No guarding Musculoskeletal: No clubbing, No swelling Integumentary: No rashes Neurological: Normal speech, Normal tone, Normal affect Lymphatics: No axilla or inguinal lymphadenopathy External genitalia: Deferred Rectal: Deferred - Studies Laboratory Data (last 24 hrs) 10/31/24 10/31/24 10/31/24 08:12 08:12 08:12 WBC 10.30 Hgb 18.4 H Hct 52.3 H Plt Count 185 PT 11.5 INR 1.10 APTT 28.4 Sodium Potassium BUN Creatinine Glucose Magnesium Total Bilirubin AST ALT Alkaline Phosphatase 10/31/24 08:12 WBC Hgb Hct Plt Count PT INR APTT Sodium 137 Potassium 4.3 BUN 15 Creatinine 1.33 H Glucose 139 H Magnesium 1.8 Total Bilirubin 0.7 AST 17 ALT 34 Alkaline Phosphatase 70 Assessment and Plan - Plan A-fib with RVR Consult Dr. Patino - done in ED Aspirin 81 mg p.o. daily Sotalol 80 mg p.o. twice daily, EKG post third dose Metoprolol 25 mg p.o. twice daily Echo Heparin drip Persistent diarrhea TSH-negative for hyperthyroid C. difficile -patient completed Levaquin 2 months ago, isolation precautions until negative test Sleep apnea Continue CPAP at at bedtime Hemoconcentration Patient with testosterone use, states he gives blood often, may consider phlebotomy Former smoker, quit 8 years ago VTE/GI prophylaxis Discharge Plan: Home Plan to discharge in: 72 Hours - Advance Directives Does patient have a Living Will: No Does patient have a Durable POA for Healthcare: No - Code Status/Comfort Care Code Status Assessed: Yes (Full)
[2024-10-31] MEDS ORDERED: SODIUM CHLORIDE 0.9% 10ML INJ IV PRN (12:43)
[2024-10-31 14:37] LABS: Magnesium 1.9 mg/dL (1.6-2.4)
[2024-10-31 14:42] LABS: Troponin High Sensitivity 452.8 pg/mL (<58.9)
[2024-10-31] MEDS: METOPROLOL TAR 25 MG TAB PO SCH (16:31)
[2024-10-31] MEDS ORDERED: METOPROLOL TAR 25 MG TAB PO SCH (18:00)
[2024-10-31] MEDS: SOTALOL HCL 80 MG TAB PO SCH (18:28)
[2024-11-01] MEDS: MORPHINE 4 MG/ML SYR IV PRN (02:55)
[2024-11-01] MEDS ORDERED: METOPROLOL XL 25 MG TAB PO SCH (06:00)
[2024-11-01 06:17] LABS: Absolute Basophils 0.1 K/uL (0-0.5); Absolute Eosinophils 0.2 K/uL (0-0.5); Absolute Lymphocytes (CBC) 2.2 K/uL (0.7-4.9); Absolute Monocytes 0.9 K/uL (0.1-1.3); Absolute Neutrophil 4.1 K/uL (1.8-8.0); Basophils % 0.8 % (0-1.3); Eosinophils % 2.8 % (0-4.4); Hematocrit 51.1 % (39.6-49.0); Hemoglobin 17.5 g/dL (13.6-17.9); Lymphocytes % 29.7 % (15.3-44.8); MCH 29.3 pg (27.0-35.0); MCHC 34.3 g/dL (32.0-36.0); MCV 85.5 fL (80-100); Monocytes % 12.2 % (3.3-12.3); Neutrophils % 54.5 % (41.7-73.7); Nucleated Red Blood Cells % 0.4 % (0-0); Platelets 195 thou/uL (152-406); RBC Red Blood Cell Count 5.98 M/uL (4.33-5.43); Red Cell Distribution Width 14.6 % (12.1-15.2)
[2024-11-01 06:31] LABS: Anion Gap 8.2 mEq/L (5.0-15.0); Potassium 4.2 mEq/L (3.5-5.1)
--- NOTE | 2024-11-01 06:47 | P.PN ---
Date of Service: 11/01/24 Subjective Remains in a. fib 118-130, is continuing with chest pressure, has been medicated with morphine overnight Review of Systems 10-point ROS is otherwise unremarkable General: Malaise Eyes: Unremarkable ENT: Unremarkable Respiratory: Shortness of Breath Cardiovascular: Palpitations, Orthopnea, Paroxysmal Noc. Dyspnea, Other (chest tightness continues) Gastrointestinal: Diarrhea Genitourinary: Unremarkable Musculoskeletal: Unremarkable Integumentary: Unremarkable Neurological: Unremarkable Lymphatics: Unremarkable Physical Examination - Vital Signs reviewed - Physical Exam General: Alert, In no apparent distress, Oriented x3 HEENT: Atraumatic, Normocephalic, PERRLA Neck: Supple, JVD not distended Respiratory: Clear to auscultation bilaterally, Normal air movement Cardiovascular: Normal pulses, Other (RVR), Irregular heart rate/rhythm Capillary refill: <2 Seconds Gastrointestinal: Soft and benign, No guarding Musculoskeletal: No clubbing, No swelling Integumentary: No rashes Neurological: Normal speech, Normal tone, Normal affect Lymphatics: No axilla or inguinal lymphadenopathy External genitalia: Deferred Rectal: Deferred Assessment and Plan - Plan A-fib with RVR Dr. Patino following Aspirin 81 mg p.o. daily Sotalol 80 mg p.o. twice daily, EKG post third dose (remains in a. fib) Metoprolol 25 mg p.o. twice daily Echo Heparin drip Persistent diarrhea TSH-negative for hyperthyroid C. difficile -patient completed Levaquin 2 months ago, isolation precautions until negative test Sleep apnea Continue CPAP at at bedtime Hemoconcentration Patient with testosterone use, states he gives blood often, may consider phlebotomy, hgb/hct 17.5/51.1 today Former smoker, quit 8 years ago VTE/GI prophylaxis Discharge Plan: Home Plan to discharge in: 72 Hours - Advance Directives Does patient have a Living Will: No Does patient have a Durable POA for Healthcare: No - Code Status/Comfort Care Code Status Assessed: Yes (Full)
[2024-11-01] MEDS: PANTOPRAZOLE 40 MG INJ IVP SCH (07:54)
[2024-11-01] MEDS: ASPIRIN EC 81 MG TAB PO SCH (07:54)
[2024-11-01] MEDS: HEPARIN/D5W 25,000 UNIT/500 ML BAG IV SCH (08:28)
[2024-11-01] MEDS ORDERED: ASPIRIN EC 81 MG TAB PO SCH (09:00)
--- NOTE | 2024-11-01 09:45 | P.CNS ---
Date of Consult: 11/01/24 Chief Complaint: a fib with RVR, NSTEMI History of Present Illness: Patient with PMH of HTN, ETOH use, presented with palpitations that has been going on for a week, associated with chest pressure sensation that started yesterday, denies any other cardiac symptoms, patient report heavy drinking on Wednesday. Allergies No Known Allergies Allergy (Unverified 02/08/18 12:19) Home medications list reviewed: Yes - Past Medical/Surgical History -: Hypertension -: Low T -: Sleep apnea Psychosocial/ Personal History: Lives at home with his . Uses testosterone, states he gives blood often, stopped smoking 8 years ago, occasional alcohol. Encouraged to take blood pressure medicine about 5 years ago but did not like the way it felt so stopped taking after about 3 weeks - Family History Father Medical History: Hypertension - Social History Alcohol use: Yes CD- Drugs: No Caffeine use: Yes Place of Residence: Home Review of Systems 10-point ROS is otherwise unremarkable Physical Examination Temp Pulse Resp BP Pulse Ox 97.7 F 51 18 124/80 94 11/01/24 08:08 11/01/24 08:08 11/01/24 08:08 11/01/24 08:08 11/01/24 08:08 General: Alert, In no apparent distress HEENT: Atraumatic, PERRLA, Mucous membr. moist/pink, EOMI, Sclerae nonicteric Neck: Supple, 2+ carotid pulse no bruit, No LAD, Without JVD or thyroid abnormality Respiratory: Clear to auscultation bilaterally, Normal air movement Cardiovascular: Irregular heart rate/rhythm Gastrointestinal: Normal bowel sounds, No tenderness Musculoskeletal: No tenderness Integumentary: No rashes Neurological: Normal gait, Normal speech, Normal tone, Normal affect Lymphatics: No axilla or inguinal lymphadenopathy Laboratory Data (last 24 hrs) 10/31/24 08:12 APTT 28.4 - Problems (1) Atrial fibrillation Current Visit: Yes Status: Acute Plan: patient Tele shows AF, RVR rate in 120s. continue Sotalol 80 mg po BID (EKG after 3rd dose) continue lopressor 25 mg po BID continue Heparin drip NPO after midnight for VALORIE DCCV. (2) NSTEMI (non-ST elevated myocardial infarction) Current Visit: Yes Status: Acute Plan: troponin mild elevated and trending down, can be type 2 OK but patient is having chest pressure so will proceed with coronary angiogram. continue ASA 81 mg daily continue statins continue Heparin drip. get Echo (3) HTN (hypertension) Current Visit: Yes Status: Acute Plan: continue lopressor 25 mg po BID and monitor. get echo
[2024-11-01] MEDS ORDERED: NITROGLYCERIN/D5W 50 MG/250 ML BTL IV ONE (10:51)
[2024-11-01] MEDS ORDERED: HEPA 1000U/500MLS 2,000 UNIT/1,000 ML BAG IV ONE (10:51)
[2024-11-01] MEDS ORDERED: ATROPINE SULF 1 MG/10 ML SYR IV ONE (10:52)
[2024-11-01] MEDS ORDERED: HEPARIN 10,000 UNIT/10 ML VIAL IV ONE (10:52)
[2024-11-01] MEDS ORDERED: CLOPIDOGREL 75 MG TABLET ONE (10:52)
[2024-11-01] MEDS ORDERED: HEPARIN 5000 UNIT/ML 1 ML VIAL ONE (10:52)
[2024-11-01] MEDS ORDERED: LIDOCAINE 1% 20 ML MDV ONE (10:52)
[2024-11-01] MEDS ORDERED: TICAGRELOR 90 MG TABLET PO ONE (10:52)
[2024-11-01] MEDS ORDERED: ASPIRIN 325 MG TAB ONE (10:53)
[2024-11-01] MEDS ORDERED: FLUMAZENIL 0.1 MG/ML (5 mL VIAL) IV ONE (10:53)
[2024-11-01] MEDS ORDERED: NALOXONE 0.4 MG/ML VIAL ONE (10:53)
[2024-11-01] MEDS ORDERED: MIDAZOLAM HCL 2 MG/2 ML INJ ONE (11:38)
[2024-11-01] MEDS ORDERED: FENTANYL CITR 100 MCG/2 ML ONE (11:39)
--- NOTE | 2024-11-01 11:39 | ECHO ---
HEIGHT: 6 ft 0 in WEIGHT: 250 lb 0.067 oz DATE OF STUDY: 11/01/[address]: Neil Rios DO 2-DIMENSIONAL: YES M.MODE: YES DOPPLER: YES COLOR FLOW: YES TDS: PORTABLE: YES DEFINITY: BUBBLE STUDY: DIAGNOSIS: ELEVATED TROPONIN, ATRIAL FIBRILLATION WITH RAPID VENTRICULAR RESPONSE CARDIAC HISTORY: CATHERIZATION: NO SURGERY: NO PROSTHETIC VALVE: NO PACEMAKER: NO MEASUREMENTS (cm) DIASTOLIC (NORMALS) SYSTOLIC (NORMALS) IVSd 1.0 (0.6-1.2) LA Diam 2.9 (1.9-4.0) LVEF 15-20% LVIDd 5.1 (3.5-5.7) LVIDs 3.9 (2.0-3.5) %FS 24% LVPWd 1.1 (0.6-1.2) Ao Diam 3.1 (2.0-3.7) 2 DIMENSIONAL ASSESSMENT: RIGHT ATRIUM: NORMAL LEFT ATRIUM: NORMAL RIGHT VENTRICLE: NORMAL LEFT VENTRICLE: NORMAL TRICUSPID VALVE: TRACE TRICUSPID REGURGITATION MITRAL VALVE: TRACE MITRAL REGURGITATION PULMONIC VALVE: NORMAL AORTIC VALVE: NORMAL PERICARDIAL EFFUSION: NONE AORTIC ROOT: NORMAL LEFT VENTRICULAR WALL MOTION: SEVERE GLOBAL HYPOKINESIS DOPPLER/COLOR FLOW: DIASTOLIC DYSFUNCTION COMMENTS: 1. SEVERELY REDUCED LEFT VENTRICULAR SYSTOLIC FUNCTION, EJECTION FRACTION 15-20%, SEVERE GLOBAL HYPOKINESIS 2. DIASTOLIC DYSFUCNTION 3. ELEVATED FILLING PRESSURE (RIGHT ATRIAL PRESSURE 10-15 mmHg) TECHNOLOGIST: SONA MEDEL
--- NOTE | 2024-11-01 11:43 | EKG ---
Test Date: 2024-11-01 Test Time: 07:48:10 Cooker Soda: CAMILO Capps MEASUREMENT RESULTS: Intervals: Rate: 121 AK: QRSD: 100 QT: 338 QTc: 479 [place]: P: AK: QRS: 68 T: 43 INTERPRETIVE STATEMENTS: Atrial fibrillation with rapid ventricular response Abnormal ECG Compared to ECG 10/31/2024 08:11:29 T-wave abnormality no longer present Electronically Signed On 11-01-24 11:43:19 OLAP DEVELOPER by Cruz Patino
--- NOTE | 2024-11-01 11:48 | EKG ---
Test Date: 2024-10-31 Test Time: 08:11:29 Hat Checker: LATONIA MEASUREMENT RESULTS: Intervals: Rate: 164 ID: QRSD: [id number] QT: 254 QTc: 419 [place]: P: ID: [id number] T: -3 INTERPRETIVE STATEMENTS: Atrial fibrillation with rapid ventricular response Abnormal QRS-T angle, consider primary T wave abnormality Abnormal ECG Compared to ECG 02/08/2018 12:03:29 T-wave abnormality now present Sinus rhythm no longer present Electronically Signed On 11-01-24 11:48:06 RADIO DISPATCHER by Cruz Patino
[2024-11-01] MEDS ORDERED: METOPROLOL TARTRATE 5 MG/5 ML INJ IV ONE (11:53)
[2024-11-01] MEDS: NA CHLORIDE 0.9% 500 ML ONE (12:30)
--- NOTE | 2024-11-01 13:04 | OP ---
Date of Procedure: 11/01/2024 Surgeon: Cruz Patino Procedure Performed: Selective coronary angiogram with left heart catheterization. Indication For Procedure: [id number]. Complications: None. Estimated Blood Loss: Less than 50 cc. Access: Right radial, closed by TR band. Sedation Time: 20 minutes with 1 of Versed and 25 of fentanyl. Description Of Procedure: After risks, and benefits, and alternatives were explained to patient, pat ient agreed to proceed with procedure and signed informed consent. The patient was brought back to [facility] petroleum laboratory technician, prepped and draped in sterile fashion. Time-out was performed. Sedation was administer ed. Next, right radial access was obtained using ultrasound-guided micropuncture technique. [place] 4 .0 catheter was advanced over a J-wire to the LV cavity. LVEDP was obtained. Pullback did not show any gradient. Same catheter was used for selective angiogram of the left and right coronary artery s ystems. At the end of procedure, catheter was removed. Sheath was removed. TR band was applied. H emostasis was achieved and the patient was moved back to Recovery in stable condition. Findings: 1. Left main normal. 2. LAD normal. 3. Left circ normal. 4. RCA normal. 5. LVEDP is 11 mmHg. Assessment And Plan: Normal coronaries. We will continue medical management. CLARENCE/ANAI Voice ID: [id number] Report ID: [id number]
[2024-11-01] MEDS: METOPROLOL TAR 25 MG TAB PO SCH (16:51)
[2024-11-01] MEDS ORDERED: METOPROLOL TAR 25 MG TAB PO SCH (18:00)
[2024-11-02 06:56] LABS: Absolute Basophils 0.1 K/uL (0-0.5); Absolute Eosinophils 0.2 K/uL (0-0.5); Absolute Lymphocytes (CBC) 2.2 K/uL (0.7-4.9); Absolute Monocytes 0.7 K/uL (0.1-1.3); Absolute Neutrophil 4.3 K/uL (1.8-8.0); Basophils % 0.8 % (0-1.3); Eosinophils % 3.2 % (0-4.4); Hematocrit 48.1 % (39.6-49.0); Hemoglobin 16.2 g/dL (13.6-17.9); Lymphocytes % 29.3 % (15.3-44.8); MCH 29.2 pg (27.0-35.0); MCHC 33.6 g/dL (32.0-36.0); MCV 86.9 fL (80-100); MPV 8.6 fL (7.6-11.3); Monocytes % 8.9 % (3.3-12.3); Neutrophils % 57.8 % (41.7-73.7); Nucleated Red Blood Cells % 0.1 % (0-0); Platelets 163 thou/uL (152-406); RBC Red Blood Cell Count 5.53 M/uL (4.33-5.43); Red Cell Distribution Width 14.3 % (12.1-15.2)
[2024-11-02 07:42] LABS: Anion Gap 8.6 mEq/L (5.0-15.0)
[2024-11-02 07:43] LABS: Potassium 3.6 mEq/L (3.5-5.1)
[2024-11-02] MEDS: NA CHLORIDE 0.9% 500 ML ONE (07:50)
[2024-11-02] MEDS ORDERED: propofoL 200 MG/20 ML VIAL IV ONE (08:19)
[2024-11-02] MEDS ORDERED: LIDOCAINE 1% MPF 5 ML VIAL ONE (08:19)
[2024-11-02] MEDS: Enoxaparin 120 MG/0.8 ML SYR SQ ONE (09:13)
[2024-11-02 09:18] VITALS: O2SAT 96
--- NOTE | 2024-11-02 13:23 | TEE ---
TRANSESOPHAGEAL ECHOCARDIOGRAM REPORT CARDIOLOGY DEPARTMENT DATE OF STUDY: 11/02/2024 HEIGHT: 6'0 WEIGHT: 250 lbs DIAGNOSIS: ATRIAL FIBRILLATION AVIATION MAINTENANCE TECHNICIAN COMMENTS: [facility] CARDIAC HISTORY: CATHERIZATION: YES SURGERY: NO PROSTHETIC VALVE: NO PACEMAKER: NO 2 DIMENSIONAL ASSESSMENT: RIGHT ATRIUM: LEFT ATRIUM: RIGHT VENTRICLE: LEFT VENTRICLE: TRICUSPID VALVE: MITRAL VALVE: PULMONIC VALVE: AORTIC VALVE: PERICARDIAL EFFUSION: AORTIC ROOT: EJECTION FRACTION: LEFT VENTRICULAR WALL MOTION: DOPPLER/COLOR FLOW: COMMENTS: 1. TRANSESOPHAGEAL ECHOCARDIOGRAM WAS INSERTED, NO DIFFICULTY 2. NO LEFT ATRIAL APPENDAGE THROMBUS IS SEEN 3. MODERATE MITRAL REGURGITATION TECHNOLOGIST: SONA MEDEL
--- NOTE | 2024-11-02 15:10 | P.DS ---
Admission Date: 10/31/24 Discharge Date: 11/03/24 Reason for Admission: a fib with RVR, NSTEMI Consultations: Cardiology Dr. Carey Small Procedures: Left Heart Cath - Dr. Patino - clear coronaries VALORIE with DC - Dr. Small - mitral regurgitation, cardioverted to NSR Brief History of Present Illness: Mr. Joya is a 54-year-old gentleman with past medical history of hypertension. He was diagnosed about 5 years ago and took medication for approximately 1 month. He did not like how it made him feel so discontinued use. He states he was in his normal state of health until about 2 and half months ago when he was given some Levaquin for an illness. He states he has had diarrhea ever since. Over the last week, he has been having palpitations, dyspnea on exertion, insomnia, and last p.m. had diaphoresis and chest tightness. This morning he states his blood pressure was 186/121 with increasing chest tightness so he presented to the emergency department for evaluation. On arrival at the ED he was noted to have A-fib with RVR. He was given aspirin, IV Lopressor x 3 rounds, and Dr. Patino was consulted. I heparin drip was initiated, sotalol 80 mg p.o. twice daily and metoprolol 25 mg p.o. twice daily were ordered. The patient will be admitted for further evaluation, an echocardiogram, and consultation with cardiology. TSH added to workup was negative for hyperthyroid state, C. difficile exam ordered and isolation precautions initiated. Hospital Course: Mr. Joya was admitted for Afib with RVR. He was started on Sotalol 80mg po BID and Metoprolol 25mg po BID, he did not convert and did have chest tightness. He was taken for heart catheterization and found to have clear coronary arteries. An Echocardiogram performed in the ED showed severe global hypokinesis with an EF of 20%. He remained in a Afib so was taken for TEEDC and was converted to NSR. He will continue on Sotalol 80mg po BID and Eliquis 5mg po BID and follow up with [facility], Dr. Patino. An outpatient echo is planned to further evaluate for non-ischemic cardiomyopathy. <Yesenia Moore - Last Filed: 11/03/24 10:21> Admission Date: 10/31/24 Discharge Date: 11/03/24 Hospital Course: Persistent atrial fibrillation status post cardioversion on November 02 Possible nonischemic cardiomyopathy transthoracic echocardiogram revealed low ejection fraction however patient does not have any heart failure symptom clinically, plan to have a repeat transthoracic echocardiogram as outpatient at his cardiology clinic Elevated troponin secondary to atrial fibrillation, no acute coronary syndrome Obesity syndrome st <ELMER Jaimes - Last Filed: 11/03/24 11:51> Disposition: ROUTINE DISCHARGE Discharge Condition: GOOD Vital Signs/Physical Exam: Temp Pulse Resp BP Pulse Ox 97.5 F 83 16 113/68 94 11/02/24 12:00 11/02/24 12:00 11/02/24 12:00 11/02/24 12:00 11/02/24 12:00 General: Alert, In no apparent distress, Oriented x3 HEENT: Atraumatic, Normocephalic Neck: Supple, 2+ carotid pulse no bruit Respiratory: Clear to auscultation bilaterally, Normal air movement Cardiovascular: Normal pulses, Regular rate/rhythm Capillary refill: <2 Seconds Gastrointestinal: Normal bowel sounds, Soft and benign Musculoskeletal: No clubbing, No swelling Integumentary: No rashes Neurological: Normal speech, Normal tone, Normal affect Lymphatics: No axilla or inguinal lymphadenopathy External genitalia: Deferred Rectal: Deferred Laboratory Data at Discharge: WBC 7.50 thou/uL (4.3-10.9) 11/02/24 06:16 Hgb 16.2 g/dL (13.6-17.9) 11/02/24 06:16 Hct 48.1 % (39.6-49.0) 11/02/24 06:16 Plt Count 163 thou/uL (152-406) 11/02/24 06:16 PT 11.5 SECONDS (9.4-12.5) 10/31/24 08:12 INR 1.10 10/31/24 08:12 APTT 51.0 SECONDS (24.3-36.9) H 11/02/24 06:16 Sodium 137 mEq/L (136-145) 11/02/24 06:08 Potassium 3.6 mEq/L (3.5-5.1) D 11/02/24 06:08 BUN 15 mg/dL (7-18) 11/02/24 06:08 Creatinine 1.13 mg/dL (0.70-1.30) 11/02/24 06:08 Glucose 122 mg/dL (74-106) H 11/02/24 06:08 Magnesium 1.9 mg/dL (1.6-2.4) 10/31/24 14:07 Total Bilirubin 0.7 mg/dL (0.2-1.0) 10/31/24 08:12 AST 17 U/L (15-37) 10/31/24 08:12 ALT 34 U/L (16-61) 10/31/24 08:12 Alkaline Phosphatase 70 U/L (45-117) 10/31/24 08:12 <Moore,Yesenia Matthew - Last Filed: 11/03/24 10:21> Vital Signs/Physical Exam: Temp Pulse Resp BP Pulse Ox 98.5 F 77 19 125/82 97 11/03/24 08:00 11/03/24 08:00 11/03/24 08:00 11/03/24 08:00 11/03/24 08:00 Laboratory Data at Discharge: WBC 6.50 thou/uL (4.3-10.9) 11/03/24 04:45 Hgb 15.7 g/dL (13.6-17.9) 11/03/24 04:45 Hct 44.5 % (39.6-49.0) 11/03/24 04:45 Plt Count 144 thou/uL (152-406) L 11/03/24 04:45 PT 11.5 SECONDS (9.4-12.5) 10/31/24 08:12 INR 1.10 10/31/24 08:12 APTT 51.0 SECONDS (24.3-36.9) H 11/02/24 06:16 Sodium 138 mEq/L (136-145) 11/03/24 04:45 Potassium 3.5 mEq/L (3.5-5.1) 11/03/24 04:45 BUN 11 mg/dL (7-18) 11/03/24 04:45 Creatinine 1.20 mg/dL (0.70-1.30) 11/03/24 04:45 Glucose 109 mg/dL (74-106) H 11/03/24 04:45 Magnesium 1.9 mg/dL (1.6-2.4) 10/31/24 14:07 Total Bilirubin 0.7 mg/dL (0.2-1.0) 10/31/24 08:12 AST 17 U/L (15-37) 10/31/24 08:12 ALT 34 U/L (16-61) 10/31/24 08:12 Alkaline Phosphatase 70 U/L (45-117) 10/31/24 08:12 <ELMER Jaimes - Last Filed: 11/03/24 11:51> Diet: Regular Activity: No lifting more than 10 lbs (for a few days s/p cardiac catheterization) <TeresaYeseniamg Castro - Last Filed: 11/03/24 10:21> <ELMER Jaimes - Last Filed: 11/03/24 11:51> Home Medications: Apixaban [Eliquis] 5 mg PO BID #180 tab 11/02/24 Pantoprazole [Protonix Tab*] 40 mg PO DAILY 11/02/24 Sotalol HCl [Betapace*] 80 mg PO BID 6AM 6PM #180 tab 11/02/24 Zolpidem Tartrate [Ambien Cr] 12.5 mg PO BEDTIME 11/02/24 New Medications: Sotalol HCl [Betapace*] 80 mg PO BID 6AM 6PM #180 tab Apixaban [Eliquis] 5 mg PO BID #180 tab Physician Discharge Instructions: Consultations: Cardiology Dr. Carey Small Procedures: Left Heart Cath - Dr. Patino - clear coronaries VALORIE with DC - Dr. Small - mitral regurgitation, cardioverted to NSR Brief History of Present Illness: Mr. Joya is a 54-year-old gentleman with past medical history of hypertension. He was diagnosed about 5 years ago and took medication for approximately 1 month. He did not like how it made him feel so discontinued use. He states he was in his normal state of health until about 2 and half months ago when he was given some Levaquin for an illness. He states he has had diarrhea ever since. Over the last week, he has been having palpitations, dyspnea on exertion, insomnia, and last p.m. had diaphoresis and chest tightness. This morning he states his blood pressure was 186/121 with increasing chest tightness so he presented to the emergency department for evaluation. On arrival at the ED he was noted to have A-fib with RVR. He was given aspirin, IV Lopressor x 3 rounds, and Dr. Patino was consulted. I heparin drip was initiated, sotalol 80 mg p.o. twice daily and metoprolol 25 mg p.o. twice daily were ordered. The patient will be admitted for further evaluation, an echocardiogram, and consultation with cardiology. TSH added to workup was negative for hyperthyroid state, C. difficile exam ordered and isolation precautions initiated. Hospital Course: Mr. Joya was admitted for Afib with RVR. He was started on Sotalol 80mg po BID and Metoprolol 25mg po BID, he did not convert and did have chest tightness. He was taken for heart catheterization and found to have clear coronary arteries. An Echocardiogram performed in the ED showed severe global hypokinesis with an EF of 20%. He remained in a Afib so was taken for TEEDC and was converted to NSR. He will continue on Sotalol 80mg po BID and Eliquis 5mg po BID and follow up with [facility], Dr. Patino. An outpatient echo is planned to further evaluate for non-ischemic cardiomyopathy. New Rx: Sotalol 80mg po BID Eliquis 5mg po BID (coupon x 30 days given) Followup: Rose Reinoso DO, DO [Primary Care Provider] - 1-2 Weeks Cruz Patino MD [ACTIVE - CAN ADMIT] - 1-2 Weeks
--- NOTE | 2024-11-02 16:38 | P.PN ---
Date of Service: 11/02/24 Subjective Remains in a. fib, [facility] 11/01/24 normal, to go for VALORIE DC today Review of Systems 10-point ROS is otherwise unremarkable General: Malaise Eyes: Unremarkable ENT: Unremarkable Respiratory: Shortness of Breath Cardiovascular: Palpitations Gastrointestinal: Diarrhea Genitourinary: Unremarkable Musculoskeletal: Unremarkable Integumentary: Unremarkable Neurological: Unremarkable Lymphatics: Unremarkable Physical Examination - Vital Signs reviewed - Physical Exam General: Alert, In no apparent distress, Oriented x3 HEENT: Atraumatic, Normocephalic, PERRLA Neck: Supple, JVD not distended Respiratory: Clear to auscultation bilaterally, Normal air movement Cardiovascular: Normal pulses, Other (RVR), Irregular heart rate/rhythm Capillary refill: <2 Seconds Gastrointestinal: Soft and benign, No guarding Musculoskeletal: No clubbing, No swelling Integumentary: No rashes Neurological: Normal speech, Normal tone, Normal affect Lymphatics: No axilla or inguinal lymphadenopathy External genitalia: Deferred Rectal: Deferred Assessment and Plan - Plan A-fib with RVR Dr. Patino did [facility] 11/01/24 Aspirin 81 mg p.o. daily Sotalol 80 mg p.o. twice daily, EKG post third dose (remains in a. fib) Metoprolol 25 mg p.o. twice daily Echo (mitral regurg) Heparin drip restarted for VALORIE DC today Persistent diarrhea TSH-negative for hyperthyroid C. difficile -patient completed Levaquin 2 months ago, isolation precautions until negative test Sleep apnea Continue CPAP at at bedtime Hemoconcentration Patient with testosterone use, states he gives blood often, may consider phlebotomy, done yesterday to hgb/hct 17.5/51.1 -> 16.2/48.1 (11/02/24) Former smoker, quit 8 years ago 1330 VALORIE DC successful - NSR, will get another dose of sotalol 80mg tonight, third (post rhythm change) in am and will again repeat EKG to check QTc. Pt to start Eliquis 5mg po BID this evening. VTE/GI prophylaxis Discharge Plan: Home Plan to discharge in: 72 Hours - Advance Directives Does patient have a Living Will: No Does patient have a Durable POA for Healthcare: No - Code Status/Comfort Care Code Status Assessed: Yes (Full)
[2024-11-02] MEDS: APIXABAN 5 MG TABLET PO SCH (18:19)
[2024-11-02] MEDS ORDERED: APIXABAN 5 MG TABLET PO SCH (21:00)
[2024-11-02] MEDS: ZOLPIDEM TARTRATE 10 MG TABLET PO PRN (23:54)
[2024-11-03 05:14] LABS: Absolute Eosinophils 0.2 K/uL (0-0.5); Absolute Lymphocytes (CBC) 1.6 K/uL (0.7-4.9); Absolute Monocytes 0.7 K/uL (0.1-1.3); Basophils % 0.6 % (0-1.3); Eosinophils % 3.1 % (0-4.4); Hematocrit 44.5 % (39.6-49.0); Hemoglobin 15.7 g/dL (13.6-17.9); Lymphocytes % 24.8 % (15.3-44.8); MCH 29.8 pg (27.0-35.0); MCHC 35.3 g/dL (32.0-36.0); MCV 84.4 fL (80-100); MPV 8.5 fL (7.6-11.3); Monocytes % 10.6 % (3.3-12.3); Neutrophils % 60.9 % (41.7-73.7); Nucleated Red Blood Cells % 0.2 % (0-0); Platelets 144 thou/uL (152-406); RBC Red Blood Cell Count 5.27 M/uL (4.33-5.43); Red Cell Distribution Width 14.6 % (12.1-15.2)
[2024-11-03 06:21] LABS: Anion Gap 7.5 mEq/L (5.0-15.0)
[2024-11-03 06:22] LABS: Potassium 3.5 mEq/L (3.5-5.1)
[2024-11-03] MEDS: POTASSIUM CL SA 10 MEQ TAB PO ONE (08:27)
[2024-11-03 12:53] VITALS: BP 135/88; TEMP 97.6
== END 2024-11-03 12:45 | disposition home or self-care (01) | DRG 282 ==
LOC: ER 07:59 → ERHOLD 12:16 → 2ND 12:45
PROVIDERS: ADMIT Internal Medicine; ATTEND Internal Medicine
PROC: 4A023N7 Measurement of Cardiac Sampling and Pressure, Left Heart, Percutaneous Approach (ICD-10-PCS; principal; 2024-11-01)
PROC: B2111ZZ Fluoroscopy of Multiple Coronary Arteries using Low Osmolar Contrast (ICD-10-PCS; 2024-11-01)
PROC: 5A2204Z Restoration of Cardiac Rhythm, Single (ICD-10-PCS; 2024-11-02)
DX: I48.91 Unspecified atrial fibrillation (principal); I21.4 Non-ST elevation (NSTEMI) myocardial infarction; I10 Essential (primary) hypertension; I34.0 Nonrheumatic mitral (valve) insufficiency; G47.30 Sleep apnea, unspecified; R19.7 Diarrhea, unspecified; R71.8 Other abnormality of red blood cells; Z87.891 Personal history of nicotine dependence
CPT/HCPCS: 01922; 36415; 71045; 76937; 80048; 80076; 83735; 84439; 84443; 84484; 85025; 85610; 85730; 92960; 93005; 93306; 93312; 93458; 96365; 96375; 99152; 99153; 99285; C1893; J0282; J0461; J1644; J1650; J2003; J2250; J2310; J2470; J2704; J3010; J7040; Q9967